=== PATIENT | female | born 1980 | race Caucasian/White ===

== ENCOUNTER 2019-03-16 01:20 | Emergency (ER) | payer OTHER ==
[~2019-03-16] VITALS: Ht 167.6 cm; Wt 72.6 kg
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
[2019-03-16] MEDS ORDERED: IBUPROFEN 600 MG TABLET ONE ×2 (02:09→02:14)
--- NOTE | 2019-03-16 02:14 | NUR ---
ANGLESMITH HELPER AT BEDSIDE
[2019-03-16] MEDS ORDERED: IBUPROFEN 600 MG TABLET PO ONE (02:15)
[2019-03-16 02:28] LABS: BASOPHILS # (AUTO) 0.1 K/uL (0.0-8.0); BASOPHILS % (AUTO) 0.5 % (0.0-2.0); EOSINOPHILS # (AUTO) 0.1 K/uL (0.0-0.7); EOSINOPHILS % (AUTO) 0.9 % (0.0-7.0); HEMATOCRIT 39.2 % (31.2-41.9); LYMPHOCYTES # (AUTO) 2.2 K/uL (20.0-40.0); LYMPHOCYTES % (AUTO) 20.2 % (20.5-51.5); MEAN CORPUSCULAR HEMOGLOBIN 31.2 uug (24.7-32.8); MEAN CORPUSCULAR HGB CONC 33 g/dL (32.3-35.6); MEAN CORPUSCULAR VOLUME 94.2 fL (75.5-95.3); MONOCYTES # (AUTO) 0.7 K/uL (2.0-10.0); MONOCYTES % (AUTO) 6.6 % (0.0-11.0); NEUTROPHILS # (AUTO) 7.7 K/uL (1.8-8.9); NEUTROPHILS % (AUTO) 71.8 % (38.5-71.5); PLATELET COUNT (AUTO) 313 K/uL (179-408); RED BLOOD CELL COUNT(AUTO) 4.16 MIL/uL (3.63-4.92); WHITE BLOOD COUNT (AUTO) 10.8 K/uL (3.8-11.8)
[2019-03-16 02:32] LABS: CARBON DIOXIDE 24 mmol/L (21-32); CHLORIDE 106 mmol/L (98-107); CREATININE 0.8 mg/dL (0.6-1.3); GLUCOSE 112 mg/dL (74-106); UREA NITROGEN, BLOOD 10 mg/dL (7-18)
[2019-03-16 02:34] LABS: *BILIRUBIN,URIN NEGATIVE (NEGATIVE); *BLOOD, URINE 1+ (NEGATIVE); *CLARITY,URINE CLEAR (CLEAR); *COLOR,URINE YELLOW (YELLOW); *KETONES,URINE NEGATIVE (NEGATIVE); *UROBILINOGEN,URINE 0.2 E.U./dl (NORMAL); LEUKOCYTE ESTERASE ,URINE NEGATIVE (NEGATIVE); NITRITE, URINE NEGATIVE (NEGATIVE); PH,URINE 5.5 (5.0-8.0); UGLUCOSE NEGATIVE (NEGATIVE)
[2019-03-16 02:36] LABS: ETHANOL < 3 MG/DL (0-0)
[2019-03-16 02:38] LABS: ACETAMINOPHEN < 2.0 ug/mL (10-30); ALANINE AMINOTRANSFERASE 20 U/L (14-59); ALKALINE PHOSPHATASE 72 U/L (50-136); ASPARTATE AMINOTRANSFERASE 21 U/L (15-37); BILIRUBIN,DIRECT 0.1 mg/dL (0.0-0.2); BILIRUBIN,TOTAL 0.3 mg/dL (0.2-1.0); TOTAL PROTEIN, SERUM 7.8 g/dL (6.4-8.2)
--- NOTE | 2019-03-16 02:42 | NUR ---
PT VOCALIZED "THINKING OF HOW TO GET OUT OF HERE" ERMD CALLED FOR SECURITY, STATING PT WILL BE PLACED ON HOLD
[2019-03-16 02:46] LABS: THYROID STIMULATING HORMONE 0.827 mIU/mL (0.358-3.740)
[2019-03-16 02:46] LABS: *AMPHETAMINE, URINE NEGATIVE (NEGATIVE); *BARBITURATE, URINE NEGATIVE (NEGATIVE); *CANNABINOID, URINE POSITIVE (NEGATIVE); *COCCAINE, URINE NEGATIVE (NEGATIVE); *OPIATE, URINE NEGATIVE (NEGATIVE); *PHENCYCLIDINE SCREEN,URINE NEGATIVE (NEGATIVE)
--- NOTE | 2019-03-16 02:51 | NUR ---
MASTER CONTROL SUPERVISOR AWARE. SECURITY AT BEDSIDE PT TRIED TO LEAVE ROOM. BUT WAS EASILY REDIRECTED TO GO BACK TO ROOM. ABLE TO CONSUME 100% OF SANDWICH, ABLE TO DRINK 100% OF JUICE AND WATER MOON FOSTER ON THE PHONE
[2019-03-16 02:56] LABS: BACTERIA,URINE MODERATE /HPF (NONE SEEN); RBC,URINE 0-3 /HPF (0-3); SQUAMOUS EPITHELIAL CELL,UR FEW /HPF (NONE SEEN); WBC,URINE 0-3 /HPF (0-3)
--- NOTE | 2019-03-16 03:19 | NUR ---
MOON LOMELI ARRIVED FOR PT EVAL Addendum: 03/16/19 at 0322 by MARICASTIL PT IS ON HER KNEES ON THE FLOOR CONVERSING WITH . CALM, BUT UP AND ABOUT WITHIN THE ROOM SECURITY (SITTER) RELIEVED BY 1ON1 SITTER AT BEDSIDE
--- NOTE | 2019-03-16 03:30 | NUR ---
MOON LOMELI AT BEDSIDE FOR PSYCHE EVAL
[2019-03-16] MEDS ORDERED: OLANZAPINE 5 MG TABLET PO ONE (03:45)
[2019-03-16] MEDS ORDERED: OLANZAPINE 5 MG TABLET ONE (03:52)
--- NOTE | 2019-03-16 04:00 | NUR ---
DIMMED LIGHTS FOR LESS STIMULI, [id number] AT BEDSIDE, PT ABLE TO TOLERATE PO MEDS ORDRED PT IS PACING STATES "I WANT TO GET OUT OF HERE, WHAT IS THE PROCESS" REORIENTED AND REDIRECTED. ENCOURAGED TO DO RELAXATION TECHNIQUES
[2019-03-16] MEDS ORDERED: LORAZEPAM 2 MG/1 ML VIAL ONE (04:27)
[2019-03-16] MEDS ORDERED: LORAZEPAM 2 MG/1 ML VIAL IM ONE (04:30)
--- NOTE | 2019-03-16 04:36 | NUR ---
PT KEPT PACING TO AND FROM ROOM AND HALLWAY REDIRECTED BACK TO ROOM PT REFUSES TO SIT BACK ON [facility] PT COMPLIANT ON TAKING MEDS ORDERED PT REFUSED SPO2 MONITOR, PT WENT BACK TO [facility] AFTER REDIRECTION FROM [id number] AT BEDSIDE DENIES SI/HI CONCERNS AT THIS TIME
--- NOTE | 2019-03-16 05:02 | NUR ---
PT IS ASLEEP ON PRONE, NAD BED AT LOWEST POSITION, SIDERAILSX2 UP UPDATED SPOUSE'S CONTACT INFO: [phone] ALTERNATE PHONE [phone] Addendum: 03/16/19 at 0507 by BEATRIS PT MONITORED ACCORDINGLY SPO2 MONITOR CONNECTED
--- NOTE | 2019-03-16 05:25 | NUR ---
PT TRIED TO SIT UP BUT APPEARS VERY SLEEPY PT REMOVED SPO2 MONITOR FROM RIGHT #4FINGER REDIRECTED TO LAY BACK, COMPLIANT AND WENT TO RIGHT LATERAL RECUMBENT PT NAD, MONITORED ACCORDINGLY 1ON1 SITTER AT BEDSIDE UPDATED SPOUSE PT WILL BE UNDER ER OBSERVATION UNTIL PLACEMENT IS DETERMINED THIS MORNING
--- NOTE | 2019-03-16 06:26 | NUR ---
PT ASLEEP ON RIGHT LATERAL RECUMBENT, BUT EASILY ROUSABLE PT NAD SIDERAILSX2 UP, BED ON LOWEST POSITION SPO2 MONITOR CONNECTED [id number] AT BEDSIDE
--- NOTE | 2019-03-16 06:48 | NUR ---
PT REMOVED SPO2 MONITOR AND WENT BACK TO SLEEP SHIFTED TO LEFT LATERAL RECUMBENT SIDERAILSX2 UP, BED AT LOWEST POSITION [id number] AT BEDSIDE, NAD
--- NOTE | 2019-03-16 07:10 | NUR ---
Pt resting in bed w/ both eyes closed, NAD noted at this time. 1 to 1 sitter at the bedside.
--- NOTE | 2019-03-16 07:16 | NUR ---
HAND OFF AND SBAR GIVEN TO INCOMING DAY SHIFT RN PT NAD BUT EASILY ROUSABLE BED AT LOWEST POSITION SIDERAILSX2 UP
--- NOTE | 2019-03-16 08:01 | NUR ---
Awake, assissted out of bed, gait unsteady. Breakfast tray provided.
--- NOTE | 2019-03-16 08:20 | NUR ---
Spoke to Richard Cameron LCSW. Pt's info faxed to [facility]. Awaiting placement/bed availibilty.
--- NOTE | 2019-03-16 11:18 | NUR ---
Phone call recieved by [facility], pt can be admitted to bed [phone]. [facility] notified trip # [id number], ETA 30 min.
--- NOTE | 2019-03-16 11:40 | NUR ---
Report given to recieving facility. Pt is resting comfortably in bed, NAD noted. Spoke to Pt's spouse Dexter, and made aware of transfer and agreed.
--- NOTE | 2019-03-16 12:06 | NUR ---
Report given to english lecturer.
--- NOTE | 2019-03-16 12:13 | NUR ---
Pt left ER w/ grao in stable condition. All belongings sent w/ pt.
== END 2019-03-16 12:14 | disposition short-term general hospital (02) ==
LOC: ER 01:26
DX: F29 Unspecified psychosis not due to a substance or known physiological condition (principal); F31.9 Bipolar disorder, unspecified; F17.200 Nicotine dependence, unspecified, uncomplicated
CPT/HCPCS: 36415; 80048; 80076; 80307; 81000; 81001; 84443; 84702; 85025; 87086; 96372; 99285; G0480 ×2; G0481; J2060; A4663